=== PATIENT | male | born 1995 | race Caucasian/White ===

== ENCOUNTER 2016-05-05 10:35 | Emergency (ER) | payer OTHER ==
[~2016-05-05 10:35] MED LIST: ABILIFY10 MG PO; BACTRIM DS 8001 TA1 PO; BACTROBAN CREAM15 GM T; CEPHALEXIN500 M1 PO; Cogentin0.5 MG PO; ESKALITH PO; KEFLEX500 MG PO; LITHIUM CARBON450 M1 PO; MOTRIN400 MG PO; MOTRIN800 MG PO; PREDNISONE20 M1 PO; VIBRAMYCIN100 MG PO; ZITHROMAX Z PA250 MG PO
[2016-05-05 10:56] VITALS: BP 160/80
[2016-05-05 11:23] LABS: BILIRUBIN NEGATIVE (NEGATIVE); BLOOD TRACE-INTACT (NEGATIVE); CLARITY SL CLOUDY (CLEAR); COLOR YELLOW (YELLOW); GLUCOSE NEGATIVE (NEGATIVE); KETONE NEGATIVE (NEGATIVE); LEUKO ESTERASE 2+ (NEGATIVE); NITRITE NEGATIVE (NEGATIVE); PH 5.5 (5.0-9.0); PROTEIN NEGATIVE (NEGATIVE); UROBILINOGEN 0.2 E.U./dl (0.2-1.0)
[2016-05-05 11:30] LABS: BACTERIA 1+; MUCOUS 1+; URINE REFLEX COMMENT YES (NO); WBC 41-50 wbc/hpf (0-5)
[2016-05-05] MEDS ORDERED: CIPRO500 MG PO (11:32)
== END 2016-05-05 11:35 | disposition home or self-care (01) ==
LOC: ED 10:35
PROVIDERS: Registered Nurse
DX: N30.00 Acute cystitis without hematuria (principal); Z20.2 Contact with and (suspected) exposure to infections with a predominantly sexual mode of transmission; Z88.5 Allergy status to narcotic agent; Z88.8 Allergy status to other drugs, medicaments and biological substances

== ENCOUNTER → 2016-09-28 | Outpatient (CLI) | payer OTHER ==
[~2016-09-28] MED LIST changes: +CIPRO500 MG PO
[2016-09-28 13:52] LABS: BASO % 0.4 % (0.0-1.0); EOS # 0.3 10*3/uL (0.0-0.4); EOS % 3.5 % (1.0-4.0); HEMATOCRIT 47.9 % (42.0-52.0); HEMOGLOBIN 15.8 g/dl (14.0-18.0); IG # 0.1 10*3/uL (0.0-0.1); LYMPH # 1.8 10*3/uL (1.3-4.4); LYMPH % 19.2 % (27.0-41.0); MEAN CELL VOLUME 88.4 fl (80.0-94.0); MEAN CORPUSCULAR HGB 29.2 pg (27.0-31.0); MEAN PLATELET VOLUME 9.7 fl (9.6-12.3); MONO # 0.6 10*3/uL (0.1-1.0); MONO % 6.1 % (3.0-9.0); NEUT # 6.4 10*3/uL (2.3-7.9); PLATELET COUNT AUTOMATED 262 10*3/uL (130-400); RED BLOOD COUNT 5.42 10*6/uL (4.50-5.90); RED CELL DISTRI WIDTH 12.8 % (0-14.5); WHITE BLOOD COUNT 9.2 10*3/uL (4.8-10.8)
[2016-09-28 14:20] LABS: HEMOGLOBIN A1c 5.4 % (4.8-5.6)
[2016-09-28 14:21] LABS: ALBUMIN 4.2 gm/dl (3.1-4.5); ALKALINE PHOSPHATASE 83 U/L (45-117); BILIRUBIN, DIRECT < 0.1 mg/dL (0.0-0.2); BILIRUBIN, TOTAL 0.4 mg/dl (0.2-1.0); BUN 10 mg/dl (7-24); CARBON DIOXIDE 26 mmol/L (21-32); CHLORIDE 105 mmol/L (98-107); CHOLESTEROL 197 mg/dL (<200); EST GLOM FILT AFRICAN AMERICAN > 60 ml/min; GLUCOSE 83 mg/dL (65-99); HDL CHOLESTEROL 38 mg/dl (40-60); POTASSIUM 4.2 mmol/L (3.5-5.1); SGOT/AST 29 IU/L (3-35); SGPT/ALT 41 U/L (12-78); SODIUM 141 mmol/L (136-145); T3 UPTAKE 34 % (31-39); TOTAL PROTEIN 7.9 gm/dL (6.4-8.2); TRIGLYCERIDES 699 mg/dl (<150)
[2016-09-28 14:46] LABS: FREE T4 0.92 ng/dl (0.76-1.46)
== END | disposition home or self-care (01) ==
LOC: LAB 13:33
PROVIDERS: Nurse Practitioner Family
DX: F31.9 Bipolar disorder, unspecified (principal); Z79.899 Other long term (current) drug therapy

== ENCOUNTER 2016-10-31 12:24 | Emergency (ER) | payer OTHER ==
[~2016-10-31] VITALS: Wt 86.2 kg
[2016-10-31 12:33] VITALS: BP 165/87
[2016-10-31] MEDS ORDERED: PREDNISONE10 MG PO (13:22)
== END 2016-10-31 13:19 | disposition home or self-care (01) ==
LOC: ED 12:24
DX: L23.7 Allergic contact dermatitis due to plants, except food (principal); Z88.8 Allergy status to other drugs, medicaments and biological substances

== ENCOUNTER 2017-02-21 16:42 | Emergency (ER) | payer OTHER ==
[~2017-02-21] VITALS: Ht 172.7 cm; Wt 90.7 kg
[~2017-02-21 16:42] MED LIST changes: +PREDNISONE10 MG PO
[2017-02-21 17:06] VITALS: BP 139/71
[2017-02-21] MEDS ORDERED: AMOXICILLIN500 M2 PO (17:14)
[2017-02-21] MEDS ORDERED: NAPROSYN500 MG PO (17:14)
== END 2017-02-21 17:37 | disposition home or self-care (01) ==
LOC: ED 16:42
DX: K04.7 Periapical abscess without sinus (principal); Z88.8 Allergy status to other drugs, medicaments and biological substances

== ENCOUNTER → 2017-04-17 | Outpatient (CLI) | payer OTHER ==
[~2017-04-17] MED LIST changes: +AMOXICILLIN500 M2 PO; +NAPROSYN500 MG PO
[2017-04-17 12:38] LABS: CHOLESTEROL 228 mg/dL (<200); TRIGLYCERIDES 289 mg/dl (<150); VLDL CHOLESTEROL 58 mg/dL (6-40)
[2017-04-17 12:41] LABS: HDL CHOLESTEROL 51 mg/dl (40-60); LDL CHOLESTEROL 119 mg/dL (9-159)
== END | disposition home or self-care (01) ==
LOC: LAB 11:53
PROVIDERS: Nurse Practitioner Family
DX: E78.1 Pure hyperglyceridemia (principal); Z79.899 Other long term (current) drug therapy

== ENCOUNTER 2018-02-03 21:25 | Emergency (ER) | payer OTHER ==
[~2018-02-03] VITALS: Ht 172.7 cm; Wt 90.7 kg
[2018-02-03 21:27] VITALS: BP 143/86
[2018-02-03] MEDS ORDERED: CEPHALEXIN500 M1 PO (21:50)
== END 2018-02-03 22:20 | disposition home or self-care (01) ==
LOC: ED 21:25
DX: S91.341A Puncture wound with foreign body, right foot, initial encounter (principal); W22.8XXA Striking against or struck by other objects, initial encounter; Y93.89 Activity, other specified; Y92.89 Other specified places as the place of occurrence of the external cause; Y99.8 Other external cause status; Z88.8 Allergy status to other drugs, medicaments and biological substances; Z79.2 Long term (current) use of antibiotics; Z79.1 Long term (current) use of non-steroidal anti-inflammatories (NSAID); Z79.899 Other long term (current) drug therapy

== ENCOUNTER → 2018-03-31 | Outpatient (CLI) | payer OTHER ==
[2018-03-31 13:16] LABS: HEMATOCRIT 48.6 % (42.0-52.0); HEMOGLOBIN 16.6 g/dl (14.0-18.0); MEAN CELL VOLUME 87.6 fl (80.0-94.0); MEAN CORPUSCULAR HGB 29.9 pg (27.0-31.0); MEAN CORPUSCULAR HGB CONC 34.2 g/dl (33.0-37.0); MEAN PLATELET VOLUME 9.3 fl (9.6-12.3); RED BLOOD COUNT 5.55 10*6/uL (4.50-5.90); RED CELL DISTRI WIDTH 12.8 % (0-14.5); WHITE BLOOD COUNT 7.6 10*3/uL (4.8-10.8)
[2018-03-31 13:47] LABS: ALBUMIN 4.4 gm/dl (3.1-4.5); ALKALINE PHOSPHATASE 74 U/L (45-117); BILIRUBIN, DIRECT 0.2 mg/dL (0.0-0.2); BUN 8 mg/dl (7-24); CHLORIDE 105 mmol/L (98-107); CHOLESTEROL 208 mg/dL (<200); CREATININE 0.97 mg/dL (0.70-1.30); FREE T4 1.01 ng/dl (0.76-1.46); HDL CHOLESTEROL 48 mg/dl (40-60); LDL CHOLESTEROL 115 mg/dL (9-159); POTASSIUM 3.8 mmol/L (3.5-5.1); SGOT/AST 15 IU/L (3-35); SGPT/ALT 41 U/L (12-78); SODIUM 137 mmol/L (136-145); T3 UPTAKE 34 % (31-39); TOTAL PROTEIN 7.9 gm/dL (6.4-8.2); TRIGLYCERIDES 227 mg/dl (<150); VLDL CHOLESTEROL 45 mg/dL (6-40)
== END | disposition home or self-care (01) ==
LOC: LAB 13:02
PROVIDERS: Nurse Practitioner Family
DX: Z79.899 Other long term (current) drug therapy (principal)

== ENCOUNTER → 2018-10-27 | Outpatient (CLI) | payer OTHER ==
[~2018-10-27] MED LIST changes: +Motrin,Rufen800 MG PO
== END | disposition home or self-care (01) ==
LOC: ORTHO 02:13
DX: S62.654D Nondisplaced fracture of middle phalanx of right ring finger, subsequent encounter for fracture with routine healing (principal); X58.XXXD Exposure to other specified factors, subsequent encounter

== ENCOUNTER 2019-06-07 23:01 | Emergency (ER) | payer OTHER ==
[~2019-06-07] VITALS: Ht 172.7 cm; Wt 86.2 kg
[2019-06-07 23:06] VITALS: BP 132/95
== END 2019-06-07 23:55 ==
LOC: ED 23:01
DX: S61.210A Laceration without foreign body of right index finger without damage to nail, initial encounter (principal); Z88.8 Allergy status to other drugs, medicaments and biological substances; W22.8XXA Striking against or struck by other objects, initial encounter; Y93.89 Activity, other specified; Y92.89 Other specified places as the place of occurrence of the external cause; Y99.8 Other external cause status

== ENCOUNTER → 2019-09-20 | Outpatient (CLI) | payer OTHER ==
[2019-09-20 17:05] LABS: BASO % 0.4 % (0.0-1.0); EOS # 0.1 10*3/uL (0.0-0.4); HEMATOCRIT 47.6 % (42.0-52.0); LYMPH # 1.3 10*3/uL (1.3-4.4); LYMPH % 14.2 % (27.0-41.0); MEAN CELL VOLUME 89.3 fl (80.0-94.0); MEAN CORPUSCULAR HGB 30.4 pg (27.0-31.0); MEAN PLATELET VOLUME 10.1 fl (9.6-12.3); MONO # 0.7 10*3/uL (0.1-1.0); MONO % 7.7 % (3.0-9.0); NEUT # 7.1 10*3/uL (2.3-7.9); NEUT % 76.2 % (47.0-73.0); PLATELET COUNT AUTOMATED 277 10*3/uL (130-400); RED BLOOD COUNT 5.33 10*6/uL (4.50-5.90); RED CELL DISTRI WIDTH 13.3 % (0-14.5); WHITE BLOOD COUNT 9.3 10*3/uL (4.8-10.8)
[2019-09-20 17:09] LABS: URINE AMPHETAMINES < 1000 (1000ng/ml); URINE BARBITURATES < 200 (200ng/ml); URINE BENZODIAZEPINES < 200 (200ng/ml); URINE CANNABINOIDS (THC) < 50 (50ng/ml); URINE COCAINE < 300 (300ng/ml); URINE METHADONE < 300 (300ng/ml); URINE OPIATES < 300 (300ng/ml)
[2019-09-20 17:23] LABS: ALBUMIN 4.3 gm/dl (3.1-4.5); BUN 10 mg/dl (7-24); CHLORIDE 104 mmol/L (98-107); SODIUM 137 mmol/L (136-145); TOTAL PROTEIN 8.3 gm/dL (6.4-8.2)
[2019-09-20 17:26] LABS: URINE PHENCYCLIDINE < 25 (25ng/ml)
[2019-09-20 17:29] LABS: VITAMIN D, 25-HYDROXY 13.9 ng/mL (30-100)
[2019-09-20 17:30] LABS: ALKALINE PHOSPHATASE 90 U/L (45-117); BILIRUBIN, DIRECT < 0.1 mg/dL (0.0-0.2); CHOLESTEROL 291 mg/dL (<200); CREATININE 1.12 mg/dL (0.70-1.30); HDL CHOLESTEROL 48 mg/dl (40-60); SGOT/AST 59 IU/L (3-35); SGPT/ALT 134 U/L (12-78); TRIGLYCERIDES 874 mg/dl (<150)
[2019-09-20 17:32] LABS: POTASSIUM 3.8 mmol/L (3.5-5.1)
[2019-09-21 06:08] LABS: HEP B CORE AB, IGM Negative (Negative); HEPATITIS B SURFACE AG Negative (Negative); HEPATITIS C VIRUS ANTIBODY <0.1 s/co (0.0-0.9)
== END | disposition home or self-care (01) ==
LOC: LAB 16:01
PROVIDERS: Physician Assistant
DX: Z51.81 Encounter for therapeutic drug level monitoring (principal); Z79.899 Other long term (current) drug therapy

== ENCOUNTER 2021-02-23 09:33 | Emergency (ER) | payer OTHER ==
[~2021-02-23] VITALS: Ht 172.7 cm; Wt 90.7 kg
[2021-02-23 09:58] VITALS: BP 160/90
[2021-02-23] MEDS ORDERED: VIBRAMYCIN100 MG PO (11:21)
== END 2021-02-23 11:33 | disposition home or self-care (01) ==
LOC: ED 09:33
DX: A64 Unspecified sexually transmitted disease (principal); A54.9 Gonococcal infection, unspecified; Z88.8 Allergy status to other drugs, medicaments and biological substances

== ENCOUNTER → 2022-04-09 | Outpatient (CLI) | payer OTHER ==
[2022-04-09 13:53] LABS: BASO % 0.5 % (0.0-1.0); EOS # 0.1 10*3/uL (0.0-0.4); EOS % 1.7 % (1.0-4.0); LYMPH # 1.4 10*3/uL (1.3-4.4); LYMPH % 23.1 % (27.0-41.0); MEAN CORPUSCULAR HGB 29.5 pg (27.0-31.0); MEAN CORPUSCULAR HGB CONC 33.9 g/dl (33.0-37.0); MEAN PLATELET VOLUME 9.5 fl (9.6-12.3); MONO # 0.4 10*3/uL (0.1-1.0); MONO % 7.1 % (3.0-9.0); NEUT % 66.9 % (47.0-73.0); PLATELET COUNT AUTOMATED 268 10*3/uL (130-400); RED BLOOD COUNT 5.29 10*6/uL (4.50-5.90); RED CELL DISTRI WIDTH 12.7 % (0-14.5); WHITE BLOOD COUNT 5.9 10*3/uL (4.8-10.8)
[2022-04-09 14:10] LABS: ALKALINE PHOSPHATASE 69 U/L (46-116); BUN 8 mg/dl (9-23); CHLORIDE 105 mmol/L (98-107); CHOLESTEROL 184 mg/dL (<200); CREATININE 0.89 mg/dL (0.70-1.30); FREE T4 1.13 ng/dl (0.89-1.76); LDL CHOLESTEROL 101 mg/dL (9-159); POTASSIUM 4.2 mmol/L (3.4-5.1); SGPT/ALT 60 U/L (10-49); THYROID STIM HORMONE (HS) 1.376 uIU/ml (0.550-4.780); TOTAL PROTEIN 7.2 gm/dL (6.0-8.0); TRIGLYCERIDES 237 mg/dl (<150)
[2022-04-09 14:32] LABS: VITAMIN D, 25-HYDROXY 16.4 ng/mL (30-100)
== END | disposition home or self-care (01) ==
LOC: LAB 13:22
PROVIDERS: Internal Medicine; ATTEND Psychiatry & Neurology Vascular Neurology
DX: Z13.1 Encounter for screening for diabetes mellitus (principal); Z13.21 Encounter for screening for nutritional disorder; Z13.0 Encounter for screening for diseases of the blood and blood-forming organs and certain disorders involving the immune mechanism; Z13.228 Encounter for screening for other metabolic disorders; Z13.29 Encounter for screening for other suspected endocrine disorder; Z13.6 Encounter for screening for cardiovascular disorders; Z13.89 Encounter for screening for other disorder; Z13.9 Encounter for screening, unspecified

== ENCOUNTER → 2022-06-20 | Day surgery (SDC) | payer OTHER ==
[~2022-06-20] VITALS: Ht 172.7 cm; Wt 98.9 kg
[~2022-06-20] MED LIST changes: +COLACE100 MG PO; +HYDROCODONE-AC1 EAC1 PO; +ONDANSETRON HYDR4 M1 PO
[2022-06-20 09:24] VITALS: BP 159/90
[2022-06-20 12:01] VITALS: BP 131/73
[2022-06-20 12:16] VITALS: BP 134/75
[2022-06-20 12:31] VITALS: BP 121/85
[2022-06-20 12:46] VITALS: BP 131/73
== END | disposition home or self-care (01) ==
LOC: SDC 06-17 13:15
PROVIDERS: ATTEND Surgery
DX: L05.91 Pilonidal cyst without abscess (principal); F90.9 Attention-deficit hyperactivity disorder, unspecified type; F41.9 Anxiety disorder, unspecified; F31.9 Bipolar disorder, unspecified; Z87.891 Personal history of nicotine dependence; Z88.8 Allergy status to other drugs, medicaments and biological substances

== ENCOUNTER 2023-06-02 14:29 | Emergency (ER) | payer OTHER ==
[~2023-06-02] VITALS: Ht 172.7 cm; Wt 90.7 kg
[2023-06-02 15:08] VITALS: BP 161/89
[2023-06-02] MEDS ORDERED: VIBRAMYCIN100 MG PO (16:51)
[2023-06-02] MEDS ORDERED: Doxycycline Hyclate 100 MG CAP PO ONE (16:55)
== END 2023-06-02 17:09 | disposition home or self-care (01) ==
LOC: ED 14:29
DX: L05.01 Pilonidal cyst with abscess (principal); F90.9 Attention-deficit hyperactivity disorder, unspecified type; F31.9 Bipolar disorder, unspecified; F41.9 Anxiety disorder, unspecified; Z88.8 Allergy status to other drugs, medicaments and biological substances; Z98.890 Other specified postprocedural states